=== PATIENT | female | born 1930 | race Caucasian/White ===

== ENCOUNTER 2017-05-31 00:13 | Inpatient (IN) | payer OTHER ==
[2017-05-31] VITALS (7 sets, daily range): BP systolic 114–135; BP diastolic 49–69
[~2017-05-31] VITALS: Ht 149.9 cm; Wt 69.8 kg
--- NOTE | ~2017-05-31 | EKG ---
[address] [place] [address] ELECTROCARDIOGRAM REPORT Name: NAYELI MENSAHMA Kendra Room #: 213-P ADM IN M.R.#: [id number] Admission: 05/31/17 Attend Phys: Beto Miller Discharge: Date of : 32 Report #: [id number] THIS REPORT FOR: //name// [facility] Test Date: 2017-06-01 Test Time: 06:07:00 Pat Name: ANDREW MENSAH Department: Room: 213 P Gender: F Geospatial Intelligence Analyst: ROBERTO : 1930 Requested By: Umbreto Salinas Order Number: [id number] MD: Bhupendra Magallanes Measurements Intervals [place] Rate: 66 P: 58 MI: 181 QRS: -51 QRSD: 137 T: 119 QT: 467 QTc: 490 Interpretive Statements Sinus rhythm Left bundle branch block Compared to ECG 05/31/2017 13:36:29 No significant changes Electronically Signed On 06-01-2017 9:57:50 CDT by Bhupendra Magallanes [email or web address] <ELECTRONICALLY SIGNED> By: Bhupendra Magallanes MD 06/01/17 0957 D: [id number] 6 Bhupendra Magallanes MD /FORREST
--- NOTE | ~2017-05-31 | EKG ---
[address] [address] ELECTROCARDIOGRAM REPORT Name: NAYELI MENSAHELVI Gardner Room #: 213-P ADM IN M.R.#: [id number] Admission: 05/31/17 Attend Phys: Beto Miller Discharge: Date of : 32 Report #: [id number] THIS REPORT FOR: //name// [facility] Test Date: 2017-05-31 Test Time: 13:36:29 Pat Name: ANDREW MENSAH Department: Room: 213 P Gender: F Astronomy Department Chair: Wanda MCNAMARA : 1930 Requested By: Umberto Salinas Order Number: [id number] MD: Bhupendra Magallanes Measurements Intervals [place] Rate: 59 P: 46 MD: 176 QRS: -59 QRSD: 137 T: 110 QT: 510 QTc: 506 Interpretive Statements Sinus rhythm Left bundle branch block Baseline wander in lead(s) V4 Compared to ECG 11/14/2014 08:11:52 Left-axis deviation no longer present Electronically Signed On 05-31-2017 20:29:08 CDT by Bhupendra Magallanes [email or web address] <ELECTRONICALLY SIGNED> By: Bhupendra Magallanes MD 05/31/172028 35 35 Bhupendra Magallanes MD /EPI
--- NOTE | ~2017-05-31 | CATHLAB ---
[facility] [address] [place] [address] INVASIVE PROCEDURE REPORT Name: ANDREW MENSAH Room #: 213-P ADM IN .R.#: [id number] Admission: 05/31/17 Attend Phys: Beto Hussein Discharge: Date of : 32 Date of Service: 05/31/17 1345 Report #: [id number] THIS REPORT FOR: //name// APPROVED REPORT Patient Details Patient Status: In-Patient Room #: The patient is a 87 year-old female Event Personnel Umberto Salinas Script Editor, Isaac Willis RN, Erika Rodarte RN Monitor, Nitin Buchanan Scrub Procedures Performed Left Heart Cath w/or w/o Coronaries [id number] [facility] w/wo Plasty Single CIRC [id number] Indication Non-STEMI , Dyspnea Risk Factors Hypercholesterolemia, Coronary Artery DiseaseHypertension Previous Procedures/Diagnoses Previous PCI Procedure Narrative The Left Groin^ was infiltrated with 1% Lidocaine subcutaneous anesthesia. A PINNACLE 6FR Sheath #[id number] sheath was inserted into the LFA^. Coronary angiography was performed using coronary diagnostic catheters. The right coronary system was accessed and visualized with a JR4 catheter. The left coronary system was accessed and visualized with a JL4 catheter. The left ventricle was accessed and visualized with a PIGTAIL catheter. Left ventricular/Aortic Valve gradient assessed . Closure device was deployed with a 6 Fr MYNXGRIP 6/7F #[id number]. The patient tolerated the procedure well and there were no complications associated with the procedure. There was no hematoma. Intraoperative Conscious Sedation Sedation start time: 12:17 Case end Time: 13:00 Fentanyl 50.0 mcg Versed 1.0 mg Fluoro Time: 13.30 minutes [facility] [place] [address] INVASIVE PROCEDURE REPORT Name: ANDREW MENSAH Kendra Room #: 213-P [facility]#: [id number] Admission: 05/31/17 Attend Phys: Beto Hussein Discharge: Date of : 32 Date of Service: 05/31/17 1345 Report #: [id number] Dose: DAP 64351.24 cGycm2 1483 mGy Contrast Type and Amount: Visipaque 200 ml Coronary Angiography The patient's coronary anatomy is right dominant. Diagnostic Cath Left Main There is separate ostia for the LAD and left circumflex artery. LAD Calcified in proximal and mid segments. The proximal segment has mild to moderate diffuse disease. Within the mid segment, there is a severe occlusion, 70%. Diagonal 1 Small-caliber vessel, no flow limiting lesions. Circumflex Moderate size caliber vessel, supplies one moderate size OM. There is a severe stenosis in the mid segment of the left circumflex artery, 95% with ARUNA 2 flow into the marginal. Right Coronary Dominant vessel with calcification throughout. There was a stent in the mid segment, with mild to moderate restenosis, 30-40%. After the stent, there is moderate diffuse disease, 40%. R PDA Patent with no flow-limiting lesions. RPLV Patent with no flow-limiting lesions. Left Ventriculography Left Ventriculography was not performed. The LVEDP is approximately 14 mmHg and there is no gradient across the outflow tract. Hemodynamics The aortic pressure is 147/61 mmHg with a mean of 80 mmHg. The left ventricular pressure is 144/42 mmHg with a mean of mmHg. The left ventricular end diastolic pressure is 59 mmHg. There was no gradient across the aortic valve upon pullback. Pullback from the left ventricle to the aorta revealed no gradient across the aortic valve. PCI Technique Lesion Anticoagulation was achieved with Angiomax. Percutaneous coronary intervention was performed on the Unspecified. A VISTA 6FR XB 3.5 #[id number] Guide Catheter was used to engage the LCA ostium. BALLOON DILATION A Balloon catheter Ironstar Helsinkiphora RX 2.0 x 6 #[id number] was inserted and inflated up to 8.00atm for 11seconds. Additional Inflation: 8.00atm for 15seconds. [address] [address] INVASIVE PROCEDURE REPORT Name: RODRICKANDREW Room #: 213-P [facility] IN M.R.#: [id number] Admission: 05/31/17 Attend Phys: Beto Hussein Discharge: Date of : 32 Date of Service: 05/31/17 1345 Report #: [id number] STENT DEPLOYMENT A drug-eluting stent RESOLUTE RX 2.25 X 8 #[id number] was inserted and inflated up to 8.00atm for 10seconds. After stent deployment, there appeared to be a dissection at the distal edge of the stent. There was disease within this area and a 2.25 x 14 mm resolute stent was inflated. POST STENT DEPLOYMENT BALLOON DILATION A Balloon catheter TREK NC RX 2.5 X 12 #[id number] was inserted and inflated up to 14atm for seconds. Final angiography reveals 0 % stenosis with ARUNA 3 flow. STENT DEPLOYMENT A drug-eluting stent RESOLUTE RX 2.25 X 14 #[id number] was inserted and inflated up to 9.00atm for 20seconds. POST STENT DEPLOYMENT BALLOON DILATION A Balloon catheter TREK NC RX 2.5 X 12 #[id number] was inserted and inflated up to 14.00atm for 18seconds. Additional Inflation: 14.00atm for 12seconds. Conclusion 1. Successful insertion of drug-eluting stents into the mid left circumflex artery stenosis. 2. Patent stent in the RCA with mild to moderate restenosis. 3. Severe stenosis in the mid LAD, recommend medical therapy. 4. Recommend dual antiplatelet therapy. Recommendations Medical Therapy <ELECTRONICALLY SIGNED> By: Umberto Salinas MD 05/31/17 1345 44 44 Umberto Salinas MD /INF
--- NOTE | ~2017-05-31 | EKG ---
[address] [address] ELECTROCARDIOGRAM REPORT Name: RODRICKANDREW Room #: 213-P ADM IN M.R.#: [id number] Admission: 05/31/17 Attend Phys: Beto Miller Discharge: Date of : 32 Report #: [id number] THIS REPORT FOR: //name// [facility] Test Date: 2017-05-31 Test Time: 04:04:51 Pat Name: ANDREW MENSAH Department: Room: 213 P Gender: F Piper Installer: candelario : 1930 Requested By: Tabatha Cardona Order Number: [id number] MD: Bhupendra Magallanes Measurements Intervals [place] Rate: 58 P: 46 IA: 182 QRS: -55 QRSD: 146 T: 112 QT: 498 QTc: 490 Interpretive Statements Sinus rhythm Left bundle branch block Compared to ECG 11/14/2014 08:11:52 Left-axis deviation no longer present Electronically Signed On 05-31-2017 20:11:57 CDT by Bhupendra Magallanes [email or web address] <ELECTRONICALLY SIGNED> By: Bhupendra Magallanes MD 05/31/172010 3 Bhupendra Magallanes MD /FORREST
[~2017-05-31 00:13] MED LIST: ACETAMINOPHEN325 M1 PO; ASPIRIN EC81 M1 PO; ASPIRIN325 PO; ATORVASTATIN CA40 MG PO; CARVEDILOL25 MG PO; CEFTIN 250 MG250 MG PO; FLAGYL 250 MG250 MG PO; FLORANEX PACKET1 GM PO; LISINOPRIL5 MG PO; NORVASC10 MG PO; OXYBUTYNIN 5 MG5 M1 PO; PLAVIX 75 MG TA75 M1 PO; POTASSIUM20 PO; PROTONIX40 M1 PO; TYLENOL325 MG PO; ZOLOFT25 MG PO
[2017-05-31 03:12] LABS: HEMATOCRIT 38.7 % (37.0-47.0); HEMOGLOBIN 12.8 gm/dL (12.0-15.0); MCHC 33.2 g/dL (28.0-37.0); MCV 90.6 fL (80.0-100.0); RBC 4.27 mil/uL (4.20-5.00); RDW 13.8 % (10.5-14.5); WBC 9.2 thou/uL (4.0-11.0)
[2017-05-31 03:21] LABS: CALCIUM 9.8 mg/dL (8.5-10.1); CREATININE 1.1 mg/dL (0.6-1.0); POTASSIUM 3.9 mmol/L (3.5-5.1)
[2017-05-31 03:29] LABS: ALBUMIN 3.7 g/dL (3.4-5.0); TOTAL BILIRUBIN 0.5 mg/dL (<0.1-1.0); TOTAL PROTEIN 7.6 g/dL (6.4-8.2)
[2017-05-31 03:32] LABS: TROPONIN-I 5.58 ng/mL (<0.04-0.07)
[2017-06-01 03:12] LABS: HEMATOCRIT 33.9 % (37.0-47.0); HEMOGLOBIN 11.3 gm/dL (12.0-15.0); MCHC 33.2 g/dL (28.0-37.0); MCV 90.2 fL (80.0-100.0); RBC 3.76 mil/uL (4.20-5.00); WBC 9.7 thou/uL (4.0-11.0)
[2017-06-01 03:29] LABS: CALCIUM 8.8 mg/dL (8.5-10.1); POTASSIUM 3.9 mmol/L (3.5-5.1)
[2017-06-01 03:34] LABS: TROPONIN-I 12.53 ng/mL (<0.04-0.07)
[2017-06-01 04:02] VITALS: BP 125/51
[2017-06-01 07:49] VITALS: BP 126/57
[2017-06-01] MEDS ORDERED: PLAVIX 75 MG TA75 M1 PO (09:01)
[2017-06-01 09:56] VITALS: BP 126/57
[2017-06-01 10:22] VITALS: BP 126/57
== END 2017-06-01 11:00 | disposition home or self-care (01) | DRG 247 ==
LOC: 2N 00:13 → ENTRNSPT 06-01 10:29 → 2N 06-01 11:00
PROVIDERS: Internal Medicine Cardiovascular Disease; Nurse Practitioner Family
PROC: B2111ZZ Fluoroscopy of Multiple Coronary Arteries using Low Osmolar Contrast (ICD-10-PCS; principal; 2017-05-31)
PROC: 027035Z Dilation of Coronary Artery, One Artery with Two Drug-eluting Intraluminal Devices, Percutaneous Approach (ICD-10-PCS; principal; 2017-05-31)
PROC: 4A023N7 Measurement of Cardiac Sampling and Pressure, Left Heart, Percutaneous Approach (ICD-10-PCS; principal; 2017-05-31)
DX: I21.4 Non-ST elevation (NSTEMI) myocardial infarction (principal); I10 Essential (primary) hypertension; Z60.2 Problems related to living alone; I65.29 Occlusion and stenosis of unspecified carotid artery; E78.5 Hyperlipidemia, unspecified; G89.29 Other chronic pain; I73.9 Peripheral vascular disease, unspecified; K21.9 Gastro-esophageal reflux disease without esophagitis; M19.90 Unspecified osteoarthritis, unspecified site; E78.00 Pure hypercholesterolemia, unspecified; I25.10 Atherosclerotic heart disease of native coronary artery without angina pectoris; I25.2 Old myocardial infarction; Z88.6 Allergy status to analgesic agent; Z88.1 Allergy status to other antibiotic agents; Z88.0 Allergy status to penicillin; Z88.2 Allergy status to sulfonamides; Z90.49 Acquired absence of other specified parts of digestive tract; Z87.891 Personal history of nicotine dependence; Z98.42 Cataract extraction status, left eye; Z98.41 Cataract extraction status, right eye; Z86.718 Personal history of other venous thrombosis and embolism; Z82.49 Family history of ischemic heart disease and other diseases of the circulatory system; Z79.82 Long term (current) use of aspirin; Z79.899 Other long term (current) drug therapy; Z90.710 Acquired absence of both cervix and uterus; Z23 Encounter for immunization
CPT/HCPCS: 10081

== ENCOUNTER → 2020-01-22 | Outpatient (CLI) | payer OTHER | LOC: SJCVC 12:40 | DX: R94.31 Abnormal electrocardiogram [ECG] [EKG] (principal); I44.7 Left bundle-branch block, unspecified; I25.10 Atherosclerotic heart disease of native coronary artery without angina pectoris; I10 Essential (primary) hypertension; I87.2 Venous insufficiency (chronic) (peripheral); I65.23 Occlusion and stenosis of bilateral carotid arteries; E78.5 Hyperlipidemia, unspecified ==